=== PATIENT | male | born 1985 | race Caucasian/White ===

== ENCOUNTER 2019-02-25 14:43 | Emergency (ER) | payer OTHER, MEDICAID ==
[~2019-02-25] VITALS: Ht 170.2 cm; Wt 77.0 kg
[2019-02-25 20:48] VITALS: BP 114/51
== END 2019-02-25 21:34 | disposition home or self-care (01) ==
LOC: ER 14:43
DX: R40.0 Somnolence (principal); T40.2X5A Adverse effect of other opioids, initial encounter; T39.315A Adverse effect of propionic acid derivatives, initial encounter; Z98.890 Other specified postprocedural states; Y92.89 Other specified places as the place of occurrence of the external cause
CPT/HCPCS: 99282

== ENCOUNTER 2019-06-08 23:11 | Emergency (ER) | payer OTHER, MEDICAID ==
[~2019-06-08] VITALS: Ht 167.6 cm; Wt 81.3 kg
[2019-06-09] MEDS ORDERED: MORPHINE SULFATE 10 MG/ML CPJ IM ONE (00:45)
[2019-06-09] MEDS ORDERED: DIAZEPAM 5 MG TABLET PO ONE (00:45)
[2019-06-09] MEDS ORDERED: KETOROLAC 30MG/ML VIAL IM ONE (00:45)
[2019-06-09 01:00] LABS: BASOPHILS % 0.7 % (0.0-2.0); EOSINOPHILS % 2.8 % (0.0-5.0); HEMATOCRIT. 45.8 % (42.0-52.0); HEMOGLOBIN. 15.1 g/dL (14.0-18.0); LYMPHOCYTES % 25.1 % (20.0-50.0); MEAN CORPUSCULAR HEMOGLOBIN 25.9 pg (28.0-32.0); MEAN CORPUSCULAR VOLUME 78.3 fL (80.0-94.0); MEAN PLATELET VOLUME 9.8 fl (7.4-10.4); MONOCYTES % 6.9 % (2.0-8.0); NEUTROPHILS % 64.5 % (40.0-76.0); PLATELET 162 x1000/uL (130-400); RED BLOOD CELL COUNT 5.84 mill/uL (4.7-6.1)
[2019-06-09 01:03] LABS: CHLORIDE 106 mEq/L (98-107)
[2019-06-09 01:12] LABS: CREATINE KINASE 138 IU/L (39-308)
[2019-06-09 01:15] LABS: CREATINE KINASE MB FRACTION 1.1 ng/mL (0.5-3.6)
[2019-06-09 02:47] VITALS: BP 122/88
== END 2019-06-09 02:48 | disposition home or self-care (01) ==
LOC: ER 06-09 00:07
DX: M62.838 Other muscle spasm (principal)
CPT/HCPCS: 36415; 71045; 72040; 80053; 82550; 82553; 83690; 84443; 84484; 85025; 85379; 85651; 93005; 96372; 99284; J1885; J2270; Z7610